=== PATIENT | female | born 1945 | race Caucasian/White ===

== ENCOUNTER → 2017-03-02 | Outpatient (CLI) | payer OTHER | LOC: BMCIMAGING 10:28 | PROVIDERS: ATTEND Family Medicine | DX: M54.5 Low back pain (principal); W19.XXXA Unspecified fall, initial encounter; M51.36 Other intervertebral disc degeneration, lumbar region; M43.07 Spondylolysis, lumbosacral region ==

== ENCOUNTER → 2018-02-06 | Outpatient (CLI) | payer OTHER | LOC: FIMAGING 07:36 | PROVIDERS: ATTEND Physician Assistant Medical | DX: M51.16 Intervertebral disc disorders with radiculopathy, lumbar region (principal); M51.27 Other intervertebral disc displacement, lumbosacral region; M46.96 Unspecified inflammatory spondylopathy, lumbar region; M46.97 Unspecified inflammatory spondylopathy, lumbosacral region; M48.061 Spinal stenosis, lumbar region without neurogenic claudication; M48.07 Spinal stenosis, lumbosacral region ==

== ENCOUNTER → 2018-07-25 | Outpatient (CLI) | payer OTHER | LOC: FIMAGING 13:16 | PROVIDERS: ATTEND Physician Assistant Surgical | DX: M41.86 Other forms of scoliosis, lumbar region (principal); M43.17 Spondylolisthesis, lumbosacral region; M53.87 Other specified dorsopathies, lumbosacral region ==